=== PATIENT | female | born 1995 | race African-American/Black ===

== ENCOUNTER 2021-11-13 09:20 | Emergency (ER) | payer BC, OTHER ==
[2021-11-13 09:52] VITALS: BP 153/76; PULSE 94; TEMP 97.9; BMI 22.8
[2021-11-13] MEDS ORDERED: ONDANSETRON 4 MG/2 ML VIAL IVPUSH ONE (11:14)
[2021-11-13] MEDS ORDERED: SODIUM CHLORIDE 0.9% 500 ML INFUS.BAG IV ONE (11:14)
[2021-11-13] MEDS ORDERED: FOLIC ACID 1 MG TABLET (FP) PO ONE (11:15)
[2021-11-13] MEDS ORDERED: FAMOTIDINE 20 MG/50 ML IVPB 20 MG/50 ML MG IVPB ONE (11:15)
[2021-11-13] MEDS ORDERED: THIAMINE HCL 200 MG/2 ML VIAL IVPB ONE (11:15)
[2021-11-13 11:52] LABS: EPI CELLS >36 /uL (0-25.1); HYALINE CASTS 1 /uL (0-3.1); PH,URINE 7.5 (5.0-8.0); URINE APPEARANCE CLEAR; URINE BACTERIA 1080 /uL (0-1359); URINE BILIRUBIN NEGATIVE (NEGATIVE); URINE COLOR YELLOW; URINE GLUCOSE (UA) NEGATIVE (NEGATIVE); URINE KETONE NEGATIVE (NEGATIVE); URINE LEUK ESTERASE 1+ (NEGATIVE); URINE NITRITE NEGATIVE (NEGATIVE); URINE PROTEIN TRACE (NEGATIVE); URINE RBC 19 /uL (0-23.9); URINE UROBILINOGEN 0.2 mg/dL (0.2-1.0); URINE WBC 74 /uL (0-25.8)
[2021-11-13 11:53] LABS: HCG,QUALITATIVE URINE Negative
[2021-11-13 12:13] LABS: EOS % 0.4 % (0-4.5); HEMATOCRIT 38.6 % (32.4-45.2); HEMOGLOBIN 12.8 GM/dL (10.7-15.3); LYMPH % 37.8 % (8-40); MCH 30.2 pg (25.7-33.7); MCHC 33.2 g/dl (32.0-36.0); MEAN CELL VOLUME 90.9 fl (80-96); MEAN PLT VOLUME 8.7 fl (7.5-11.1); MONO % 6.5 % (3.8-10.2); NEUT % 53.8 % (42.8-82.8); PLATELET COUNT 283 10^3/uL (134-434); RBC 4.24 M/mm3 (3.60-5.2); RDW 16.3 % (11.6-15.6); WHITE BLOOD COUNT 3.4 K/mm3 (4.0-10.0)
[2021-11-13 12:14] LABS: BASO % 1.5 % (0-2.0)
[2021-11-13 12:36] LABS: CALCIUM 9.4 mg/dL (8.5-10.1)
[2021-11-13 12:37] LABS: ALBUMIN 4.1 g/dl (3.4-5.0); BLOOD UREA NITROGEN 14.2 mg/dL (7-18)
[2021-11-13 12:40] LABS: CREATININE 0.8 mg/dL (0.55-1.3)
[2021-11-13 12:41] LABS: BILIRUBIN,TOTAL 0.8 mg/dL (0.2-1); TOT PROT 8.9 g/dl (6.4-8.2)
[2021-11-13 14:05] LABS: CALCIUM 8.9 mg/dL (8.5-10.1)
[2021-11-13 14:06] LABS: ALBUMIN 3.9 g/dl (3.4-5.0); BLOOD UREA NITROGEN 13.4 mg/dL (7-18)
[2021-11-13 14:09] LABS: CREATININE 0.8 mg/dL (0.55-1.3)
[2021-11-13 14:10] LABS: BILIRUBIN,TOTAL 0.6 mg/dL (0.2-1)
[2021-11-13 14:11] LABS: TOT PROT 8.3 g/dl (6.4-8.2)
== END 2021-11-13 14:08 | disposition home or self-care (01) ==
LOC: JER 09:20
PROC: 3E033GC Introduction of Other Therapeutic Substance into Peripheral Vein, Percutaneous Approach (ICD-10-PCS; principal; 2021-11-13)
DX: F10.99 Alcohol use, unspecified with unspecified alcohol-induced disorder (principal)
CPT/HCPCS: 36415; 80053; 81003; 83690; 84703; 85025; 87086; 99284-25

== ENCOUNTER 2022-06-28 01:24 | Emergency (ER) | payer BC, OTHER ==
[2022-06-28 01:33] VITALS: BP 137/94; PULSE 94; RESP 18; TEMP 98.3; BMI 22.0
[2022-06-28] MEDS ORDERED: chlordiazePOXIDE HCL 25 MG CAPSULE PO ONE ×2 (03:21→06:44)
[2022-06-28] MEDS ORDERED: chlordiazePOXIDE HCL 25 MG CAPSULE ONE ×2 (04:00→06:55)
[2022-06-28 04:32] LABS: BASO % 0.6 % (0-2.0); EOS % 0.2 % (0-4.5); HEMOGLOBIN 11.6 GM/dL (10.7-15.3); LYMPH % 32.3 % (8-40); MCH 31.2 pg (25.7-33.7); MEAN CELL VOLUME 91.8 fl (80-96); MONO % 7.3 % (3.8-10.2); NEUT % 59.6 % (42.8-82.8); PLATELET COUNT 163 10^3/uL (134-434); RBC 3.71 M/mm3 (3.60-5.2); RDW 15.9 % (11.6-15.6); WHITE BLOOD COUNT 3.9 K/mm3 (4.0-10.0)
[2022-06-28 04:52] LABS: CALCIUM 9.2 mg/dL (8.5-10.1)
[2022-06-28 04:53] LABS: ALBUMIN 3.8 g/dl (3.4-5.0); BLOOD UREA NITROGEN 8.9 mg/dL (7-18)
[2022-06-28 04:56] LABS: CREATININE 0.8 mg/dL (0.55-1.3); TOT PROT 7.4 g/dl (6.4-8.2)
[2022-06-28 04:58] LABS: BILIRUBIN,TOTAL 0.8 mg/dL (0.2-1)
[2022-06-28] MEDS ORDERED: LORazepam 2 MG TABLET PO ONE (06:42)
== END 2022-06-28 08:41 | disposition home or self-care (01) ==
LOC: JER 01:24
DX: F41.9 Anxiety disorder, unspecified (principal); F10.10 Alcohol abuse, uncomplicated
CPT/HCPCS: 36415; 80053; 85025; 99283-25